=== PATIENT | female | born 1985 | race Caucasian/White ===

== ENCOUNTER 2018-05-22 19:23 | Emergency (ER) | payer OTHER ==
[2018-05-22] MEDS: HYDROcodone/APAP 5/325MG 1 TAB TABLET PO (20:26)
[2018-05-22] MEDS: GELATIN SPONGE SIZE 12-7MM SPONGE. TP (20:27)
== END 2018-05-22 21:02 | disposition home or self-care (01) ==
LOC: ER 21:02
DX: S61.306A Unspecified open wound of right little finger with damage to nail, initial encounter (principal); J45.909 Unspecified asthma, uncomplicated; W23.0XXA Caught, crushed, jammed, or pinched between moving objects, initial encounter; Y93.89 Activity, other specified; Y99.8 Other external cause status; Y92.89 Other specified places as the place of occurrence of the external cause
CPT/HCPCS: 99283